=== PATIENT | female | born 1945 | race Caucasian/White ===

== ENCOUNTER 2017-10-08 17:57 | Emergency (ER) | payer MEDICARE ==
[2017-10-08] MEDS ORDERED: HYDROcodone/Acetaminophen 5/325 mg Tablet ONE (19:24)
[2017-10-08] MEDS ORDERED: Ketorolac Tromethamine 30 MG/ML VIAL ONE (19:24)
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
== END 2017-10-08 20:05 | disposition home or self-care (01) ==
LOC: SCSER 17:57
DX: R10.9 Unspecified abdominal pain (principal); E11.9 Type 2 diabetes mellitus without complications; I10 Essential (primary) hypertension; Z79.84 Long term (current) use of oral hypoglycemic drugs; W19.XXXA Unspecified fall, initial encounter
CPT/HCPCS: 96372; J1885

== ENCOUNTER 2017-12-05 14:52 | Outpatient (CLI) | payer MEDICARE | END 2017-12-05 14:53 | disposition home or self-care (01) | LOC: CTENTCT 14:52 | PROVIDERS: ATTEND Specialist | DX: J32.9 Chronic sinusitis, unspecified (principal) | CPT/HCPCS: 70486 ==

== ENCOUNTER 2017-12-11 12:00 | Outpatient (CLI) | payer MEDICARE ==
--- NOTE | 2017-12-11 12:35 | RAD ---
TWO VIEWS OF THE CHEST: HISTORY: Dyspnea. COMPARISON: 06/10/2015 FINDINGS: Two views of the chest show normal sized cardiomediastinal silhouette. There is no evidence of consol idation, mass, or pleural effusion. The bones are unremarkable. IMPRESSION: No evidence of acute cardiopulmonary disease. POS: [facility]
== END 2017-12-11 12:01 | disposition home or self-care (01) ==
LOC: RAD 12:00
PROVIDERS: ATTEND Internal Medicine Pulmonary Disease
DX: R06.00 Dyspnea, unspecified (principal)
CPT/HCPCS: 71046

== ENCOUNTER 2019-05-08 18:09 | Emergency (ER) | payer MEDICARE ==
[~2019-05-08 18:09] MED LIST: ISOVUE-370 76%-LOCM 1 ML ONE
[2019-05-08 21:27] LABS: #Eosinphils 0.2 thou/uL (0.0-0.7); #Lymphocytes 2.1 thou/uL (1.20-3.40); #Monocytes 0.6 thou/uL (0.11-0.59); %Basophils 0.5 % (0.0-1.0); %Eosinophils 1.7 % (0.0-10.0); %Lymphocytes 21.2 % (21.0-51.0); %Monocytes 5.9 % (0.0-10.0); %Neutrophils 70.7 % (42.0-75.0); Hemoglobin 13.2 g/dL (12.0-16.0); Mean Corpuscular HGB CONC 31.7 g/dL (32.0-36.0); Mean Corpuscular Volume 88.4 fL (78.0-98.0); Mean Platelet Volume 7.4 fL (7.4-10.4); Platelet Count 287 thou/uL (130-400); RBC Distribution Width 13.1 % (11.5-14.5); Red Blood Cell (RBC) Count 4.72 mill/uL (4.20-5.40); White Blood Cell (WBC) Count 9.8 thou/uL (4.8-10.8)
[2019-05-08 21:36] LABS: PTT 31.2 SEC (22.9-36.1); Prothrombin Time 13.4 SEC (12.0-14.7)
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
[2019-05-08 21:56] LABS: ALT (SGPT) 14 U/L (8-55); AST (SGOT) 14 U/L (5-34); Albumin 4.2 g/dL (3.4-4.8); Alkaline Phosphatase 85 U/L (40-150); Anion Gap 13 mmol/L (10-20); BUN (Urea Nitrogen) 10 mg/dL (9.8-20.1); Bilirubin, Total 0.4 mg/dL (0.2-1.2); Calc. Creatinine Clearance 0 mL/min (70-130); Calcium 9.6 mg/dL (7.8-10.44); Carbon Dioxide 25 mmol/L (23-31); Chloride 104 mmol/L (98-107); Estimated GFR-MDRD 74; Glucose 129 mg/dL (83-110); Lipase 16 U/L (8-78); Potassium 3.6 mmol/L (3.5-5.1); Protein, Total 7.2 g/dL (6.0-8.3); Sodium 138 mmol/L (136-145)
[2019-05-08] MEDS ORDERED: Morphine 4 MG/ML VIAL ONE (22:06)
[2019-05-08] MEDS ORDERED: Ondansetron PF 4 MG/2 ML Vial ONE (22:06)
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
== END 2019-05-08 23:20 | disposition home or self-care (01) ==
LOC: ERS 18:09
DX: S06.9X9A Unspecified intracranial injury with loss of consciousness of unspecified duration, initial encounter (principal); R11.10 Vomiting, unspecified; M54.6 Pain in thoracic spine; E11.9 Type 2 diabetes mellitus without complications; I10 Essential (primary) hypertension; V29.9XXA Motorcycle rider (driver) (passenger) injured in unspecified traffic accident, initial encounter; Z79.899 Other long term (current) drug therapy
CPT/HCPCS: 36415; 70450; 71260; 72125; 74177; 80053; 83690; 85025; 85610; 85730; 96374; 96375; J2270; J2405

== ENCOUNTER 2019-07-04 10:40 | Day surgery (SDC) | payer MEDICARE ==
[2019-07-03 15:56] VITALS: BMI 30.7
[2019-07-04] MEDS ORDERED: PROPOFOL 20 ML ONE (12:28)
[2019-07-04] MEDS ORDERED: Fentanyl 100 MCG/2 ML VIAL ONE (12:28)
== END 2019-07-04 13:20 | disposition home or self-care (01) ==
LOC: SDC/OP 10:40
PROVIDERS: ATTEND Neurological Surgery
DX: M54.12 Radiculopathy, cervical region (principal); I10 Essential (primary) hypertension; G40.909 Epilepsy, unspecified, not intractable, without status epilepticus; Z53.20 Procedure and treatment not carried out because of patient's decision for unspecified reasons
CPT/HCPCS: J2704; J3010

== ENCOUNTER 2019-08-06 09:03 | Outpatient (CLI) | payer MEDICARE ==
--- NOTE | 2019-08-06 11:33 | MRI ---
MRI Cervical spine without contrast: HISTORY: Cervical radiculopathy COMPARISON: 05/07/2015 FINDINGS: The craniocervical junction is unremarkable. There is degenerative marrow signal alteration. There is generalized cord signal heterogeneity some of which is due to motion artifact although the p ossibility of underlying edema/myelomalacia is not excluded. C1-2:No significant stenosis. C2-3:Small left paracentral disc protrusion encroaches upon the ventral aspect of the cervical spinal cord without significant mass effect. Asymmetric right uncinate process hypertrophy, along with facet hypertrophy results in mild right foraminal narrowing. No significant left foraminal narrowing. C3-4:Broad-based disc osteophyte with [id number] central canal stenosis and ventral cord flatte singh. There is bilateral uncinate process and facet opercula with moderate bilateral neural foraminal stenosis. C4-5:Degenerative disc space narrowing, broad-based osteophyte ridge produces moderate to severe cent ral canal stenosis with prominent cord compression. There is bilateral uncinate process and facet hypertrophy with severe left and moderate right neural foraminal stenosis. C5-6:Left subarticular disc protrusion superimposed upon disc osteophyte with moderate to severe cent ral canal stenosis, with associated cord compression, more pronounced to the left of midline. Bilateral uncinate process and facet hypertrophy result in severe bilateral neural foraminal stenosis . C6-7: Right asymmetric disc osteophyte with moderate central canal stenosis and ventral cord compress ion more pronounced to the right. There is bilateral uncinate process hypertrophy with severe left and moderate right neural foraminal stenosis. C7-T1:No high-grade central canal or neural foraminal stenosis. Incidentally visualized and partially imaged, there is a moderate-sized central protrusion at the T1- 2 level. IMPRESSION: Multilevel severe degenerative change of the cervical spine with associated multilevel central canal stenosis, cord deformity and neural foraminal stenosis. There is multifocal cord signal heterogeneity likely on the basis of compressive edema/myelomalacia. Incidental note of partially imaged protrusion/extrusion at T1-2 with cephalad migration of disc mate rial and ventral cord effacement.
== END 2019-08-06 09:04 | disposition home or self-care (01) ==
LOC: SCSMRI 09:03
PROVIDERS: ATTEND Neurological Surgery
DX: M47.22 Other spondylosis with radiculopathy, cervical region (principal); M48.02 Spinal stenosis, cervical region
CPT/HCPCS: 72141

== ENCOUNTER 2021-12-12 09:45 | Outpatient (CLI) | payer MEDICARE | END 2021-12-12 09:46 | disposition home or self-care (01) | LOC: BICRAD 09:45 | PROVIDERS: ATTEND Family Medicine | DX: R91.8 Other nonspecific abnormal finding of lung field (principal) | CPT/HCPCS: 71046 ==

== ENCOUNTER 2023-07-10 00:06 | Inpatient (IN) | payer OTHER ==
[2023-07-10] MEDS ORDERED: Propofol 1,000 MG/100 ML VIAL IV ONE (00:11)
[2023-07-10] MEDS ORDERED: Electrolyte Replacement Protocol 1 EACH IVPB SCH (00:33)
[2023-07-10] MEDS ORDERED: Sodium Chloride 3% 500 ML IVPB PRN (00:33)
[2023-07-10] MEDS ORDERED: Propofol BOLUS 1,000 MG/100 ML VIAL IV PRN (00:45)
[2023-07-10] MEDS ORDERED: Ventilator Sedation Protocol 1 EACH FS SCH (00:45)
[2023-07-10] MEDS ORDERED: DISCONTINUE PREVIOUS NARCOTIC PAIN MEDICATIONS AND BENZODIAZEPINES FS SCH (00:45)
[2023-07-10] MEDS ORDERED: Fentanyl CADD 100 ML IV SCH (00:45)
[2023-07-10] MEDS ORDERED: Lorazepam 2 MG/ML VIAL SLOW IVP PRN (00:45)
[2023-07-10] MEDS ORDERED: Morphine 2 MG/ML VIAL SLOW IVP PRN (00:45)
[2023-07-10] MEDS ORDERED: Fentanyl BOLUS 250 ML IVPB PRN (00:45)
[2023-07-10] MEDS ORDERED: Propofol 1,000 MG/100 ML VIAL IV PRN (00:45)
[2023-07-10 01:43] VITALS: BMI 27.4
[2023-07-10] MEDS: niCARdipine 25 MG in Sodium Chloride 0.9% 250 ML 250 ML IVPB PRN ×2 (02:49→05:17)
[2023-07-10 04:47] LABS: #Neutrophils 9.6 thou/uL (1.40-6.50); %Basophils 0.2 % (0.0-1.0); %Eosinophils 0.3 % (0.0-10.0); %Lymphocytes 16.3 % (21.0-51.0); %Monocytes 7.7 % (0.0-10.0); %Neutrophils 75.1 % (42.0-75.0); Hematocrit 37.4 % (36.0-47.0); Mean Corpuscular HGB CONC 34.8 g/dL (32.0-36.0); Mean Corpuscular Hemoglobin 29.5 pg (27.0-31.0); Mean Platelet Volume 9.8 fL (7.4-10.4); Platelet Count 291 10x3/uL (130-400); RBC Distribution Width 12.8 % (11.5-14.5); White Blood Cell (WBC) Count 12.8 10x3/uL (4.8-10.8)
[2023-07-10 05:18] LABS: Anion Gap 18 mmol/L (10-20); BUN (Urea Nitrogen) 28 mg/dL (9.8-20.1); Calc. Creatinine Clearance 40 mL/min (70-130); Calcium 8.6 mg/dL (7.8-10.44); Carbon Dioxide 24 mmol/L (23-31); Cardiac Risk 5.1 (Less than 4.5); Chloride 98 mmol/L (98-107); Cholesterol 224 mg/dl (< 200 Desired); Estimated GFR 36; Glucose 200 mg/dL (83-110); HDL Cholesterol 44 mg/dL (>60 Neg Risk); LDL Cholesterol, Calculated 146 mg/dL; Sodium 138 mmol/L (136-145); Triglycerides 168 mg/dL (Less than 150)
[2023-07-10 05:27] LABS: Potassium 1.7 mmol/L (3.5-5.1)
[2023-07-10] MEDS: Potassium Chloride 20 MEQ in Premix Bag 1 BAG IVPB SCH ×4 (05:38→13:58)
[2023-07-10 06:48] LABS: SARS-CoV-2 NAA Rapid Test DETECTED (NotDetected)
[2023-07-10 07:49] LABS: Base Excess (BEa) 2.6 mEq/L (-2.0 to +3.0); CO2 Tension 27.9 mmHg (35.0-45.0); Calcium, Ionized (arterial) 1.01 mmol/L (1.12-1.30); Carboxyhemoglobin (COHb) 0.3 gm% (0.0-3.0); Hematocrit-ABG 37 % (36.0-47.0); Hemoglobin (Hb) 12.5 g/dL (12.0-16.0); O2 Tension (PaO2), arterial 198.1 mmHg (> 60.0); pH, Arterial 7.553 (7.35-7.45)
[2023-07-10 07:51] LABS: ALV-art Gradient 123.525 mmHg (0-20); Potassium - ABG Lab 1.87 mmol/L (3.70-5.30); Puncture Site LBA
[2023-07-10] MEDS ORDERED: Famotidine/PF 20 mg/2ml Vial SLOW IVP SCH (09:00)
[2023-07-10 12:23] VITALS: TEMP 98.6
[2023-07-10 14:10] VITALS: BP 145/52
== END 2023-07-10 14:28 | disposition hospice, inpatient (51) | DRG 82 ==
LOC: ERS 00:06 → CCU 00:07
PROVIDERS: ADMIT Student in an Organized Health Care Education/Training Program; ATTEND Family Medicine
PROC: 5A1935Z Respiratory Ventilation, Less than 24 Consecutive Hours (ICD-10-PCS; principal; 2023-07-10)
PROC: 4A033R1 Measurement of Arterial Saturation, Peripheral, Percutaneous Approach (ICD-10-PCS; 2023-07-10)
PROC: 8E0ZXY6 Isolation (ICD-10-PCS; 2023-07-10)
PROC: 0DH67UZ Insertion of Feeding Device into Stomach, Via Natural or Artificial Opening (ICD-10-PCS; 2023-07-10)
PROC: 3E0G76Z Introduction of Nutritional Substance into Upper GI, Via Natural or Artificial Opening (ICD-10-PCS; 2023-07-10)
DX: S06.5XAA Traumatic subdural hemorrhage with loss of consciousness status unknown, initial encounter (principal); S06.A1XA Traumatic brain compression with herniation, initial encounter; U07.1 COVID-19; R00.1 Bradycardia, unspecified; Z66 Do not resuscitate; Z51.5 Encounter for palliative care; E11.9 Type 2 diabetes mellitus without complications; I10 Essential (primary) hypertension; E87.6 Hypokalemia; Z88.0 Allergy status to penicillin; Z79.84 Long term (current) use of oral hypoglycemic drugs; Z79.899 Other long term (current) drug therapy; Z90.710 Acquired absence of both cervix and uterus; W18.30XA Fall on same level, unspecified, initial encounter; Z79.890 Hormone replacement therapy; R40.2342 Coma scale, best motor response, flexion withdrawal, at arrival to emergency department; R40.2112 Coma scale, eyes open, never, at arrival to emergency department; R40.2212 Coma scale, best verbal response, none, at arrival to emergency department; I95.9 Hypotension, unspecified
CPT/HCPCS: 31500; 36415; 36416; 36600; 70450; 71045; 80048; 80053; 80061; 80306; 80307; 81001; 82805; 83605; 84484; 85025; 85610; 85730; 93005; 94002; 94760; J1953; J2704; J3010; J3480; J7050; S0028; U0002